=== PATIENT | male | born 1995 | race Two or more races ===

== ENCOUNTER 2021-03-19 22:47 | Emergency (ER) | payer OTHER ==
[~2021-03-19] VITALS: Ht 172.7 cm; Wt 56.7 kg
[2021-03-20] MEDS ORDERED: ZYNCOF 20-400120 ML PO (00:31)
[2021-03-20] MEDS ORDERED: ZITHROMAX500 MG PO (00:31)
== END 2021-03-20 00:42 ==
LOC: ER 22:47
DX: J06.9 Acute upper respiratory infection, unspecified (principal)

== ENCOUNTER 2023-03-10 09:36 | Emergency (ER) | payer OTHER ==
[~2023-03-10] VITALS: Ht 175.3 cm; Wt 58.5 kg
[~2023-03-10 09:36] MED LIST: ZITHROMAX500 MG PO; ZYNCOF 20-400120 ML PO
== END 2023-03-10 15:13 | disposition home or self-care (01) ==
LOC: ER 09:37
DX: J02.9 Acute pharyngitis, unspecified (principal); Z20.822 Contact with and (suspected) exposure to COVID-19